=== PATIENT | male | born 1980 | race Hispanic/Latino ===

== ENCOUNTER 2017-12-18 11:37 | Emergency (ER) | payer OTHER ==
[2017-12-18 12:14] VITALS: O2SAT 100
--- NOTE | 2017-12-18 12:36 | ED PDOC ---
Lower Extremity Pain/Injury Time Seen by Provider: 12/18/17 12:19 Chief Complaint (Nursing): Lower Extremity Problem/Injury Chief Complaint (Provider): left leg pain History Per: Patient Additional Complaint(s): 7-year-old male presents to emergency department with atraumatic pain to left leg that started yesterday. He denies any trauma or injury. Patient denies any recent travel, denies any prolonged periods of being sedentary as of late. He rates current pain as a 4 out of 10, no fever or chills. PMD: in [facility] Past Medical History Reviewed: Historical Data, Nursing Documentation, Vital Signs Vital Signs: Last Vital Signs Temp 97 F L 12/18/17 12:12 Pulse 91 H 12/18/17 12:12 Resp 18 12/18/17 12:12 BP 155/99 H 12/18/17 12:12 Pulse Ox 100 12/18/17 12:12 - Medical History PMH: Hyperlipidemia - Family History Family History: States: No Known Family Hx - Living Arrangements Living Arrangements: With Family - Social History Current smoker - smoking cessation education provided: No Alcohol: Social Drugs: Denies - Allergies Allergies/Adverse Reactions: Allergies Allergy/AdvReac Type Severity Reaction Status Date / Time amoxicillin Allergy RASH Verified 12/18/17 12:12 Wells Criteria for PE - Wells Criteria for Pulmonary Embolism Clinical Signs and Symptoms of DVT: No P.E is #1 Diagnosis, or Equally Likely: No Heart Rate >100: No Immobilization at least 3 days;Surgery previous 4 weeks: No Previous, objectively diagnosed PE or DVT: No Hemoptysis: No Malignancy w/treatment within 6 months, or palliative: No Total Score: 0 Review of Systems ROS Statement: Except As Marked, All Systems Reviewed And Found Negative Constitutional: Negative for: Fever Musculoskeletal: Positive for: Other (left leg pain) Physical Exam - Reviewed Nursing Documentation Reviewed: Yes Vital Signs Reviewed: Yes - Physical Exam Appears: Positive for: Well, Non-toxic, No Acute Distress Skin: Positive for: Normal Color. Negative for: Rash Eye Exam: Positive for: Normal appearance Neck: Positive for: Normal Extremity: Positive for: Other (Full range of motion of left knee and ankle, no swelling or ecchymosis noted, there is slight tenderness to posterior aspect of left knee with no palpable cyst or erythema noted, no calf swelling or tenderness) Neurologic/Psych: Positive for: Alert, Oriented - ECG O2 Sat by Pulse Oximetry: 100 Pulse Ox Interpretation: Normal Medical Decision Making Medical Decision Makin37 y/o male with left leg pain Patient expressed concern for possible DVT and initially requested US of leg. Clinically there is low suspicion for possible DVT. Patient was offered doppler but he declined. He states he prefers to monitor his symptoms throughout the day and will return if worse at any time. Advised NSAIDs for pain as needed. Patient was instructed he can return to ER anytime if acutely worse. Repeat BP prior to d/c 128/76. Disposition - Clinical Impression Clinical Impression: Left leg pain - Patient ED Disposition Is Patient to be Admitted: No Counseled Patient/Family Regarding: Need For Followup - Disposition Referrals: [facility] [Outside] Disposition: Routine/Home Disposition Time: 12:35 Condition: STABLE Additional Instructions: Ice, rest and elevate affected area. Take over the counter advil or tylenol for pain as needed. Return any time if acutely worse. Instructions: Muscle and Bone Pain (DC) Forms: [facility] (Malay)
[2017-12-18 12:37] VITALS: BP 147/98; PULSE 75; RESP 16; TEMP 98.5
== END 2017-12-18 12:53 | disposition home or self-care (01) ==
LOC: H.ER 11:37
DX: M79.605 Pain in left leg (principal); E78.5 Hyperlipidemia, unspecified